=== PATIENT | female | born 1980 | race Caucasian/White ===

== ENCOUNTER 2017-08-18 15:43 | Emergency (ER) | payer SELFPAY ==
[~2017-08-18] VITALS: Ht 162.6 cm; Wt 105.0 kg
[2017-08-18 15:45] VITALS: BP 149/82
[2017-08-18 17:29] LABS: HEMATOCRIT 37.8 % (37.0-47.0); HEMOGLOBIN 12.9 g/dl (12.0-16.0); IMMATURE GRANULOCYTES 0.4 % (0.0-1.0); MEAN CELL VOLUME 79.7 fL CALC (80.0-100.0); MEAN CORPUSCULAR HGB 27.2 pG CALC (26.0-32.0); MEAN CORPUSCULAR HGB CONC 34.1 g/L CALC (32.0-36.0); NEUT# 7.38 thou/uL (2.00-7.15); RED BLOOD COUNT 4.74 mill/uL (4.20-5.60); RED CELL DISTRI WIDTH 13.4 % (11.5-15.5)
[2017-08-18 17:44] LABS: ALBUMIN 4.4 g/dL (3.2-5.0); ALKALINE PHOSPHATASE 84 u/l (38-126); ANION GAP 16 (6-22 (CALC)); BILIRUBIN, TOTAL 0.3 mg/dL (0.0-1.4); BUN 10 mg/dL (7-17); BUN/CREATININE RATIO 12 (12-20 (CALC)); CALCIUM 10.3 mg/dL (8.4-10.2); CARBON DIOXIDE 29 mmol/l (22-30); CHLORIDE 99 mmol/l (95-108); CREATININE 0.8 mg/dL (0.5-1.0); GFR > 60 ML/MIN (>=60 (CALC)); GFR FOR AFR.AMER. > 60 ML/MIN (>=60 (CALC)); GLUCOSE 175 mg/dL (65-105); POTASSIUM 3.5 mmol/l (3.5-5.1); SGOT/AST 16 u/l (14-36); SGPT/ALT 22 u/l (9-52); SODIUM 140 mmol/l (137-146)
[2017-08-18] MEDS ORDERED: ULTRAM50 MG PO (17:58)
[2017-08-18 18:43] LABS: URINE BILIRUBIN - DIPSTICK NEGATIVE (NEGATIVE); URINE BLOOD DIPSTICK NEGATIVE (NEGATIVE); URINE COLOR YELLOW; URINE GLUCOSE - DIPSTICK >=1000 mg/dL (NEGATIVE); URINE KETONE NEGATIVE (NEGATIVE); URINE LEUK ESTERASE NEGATIVE (NEGATIVE); URINE NITRITE - DIPSTICK NEGATIVE (Negative); URINE PH 5.5 (4.5-8.0); URINE PROTEIN - DIPSTICK NEGATIVE (NEG-TRACE); URINE UROBILINOGEN - DIPSTICK 0.2 E.U./dL (0.2)
[2017-08-18 18:57] LABS: URINE CLARITY CLEAR
== END 2017-08-18 21:40 | disposition home or self-care (01) | DRG 923 ==
LOC: ED 15:43
PROVIDERS: Emergency Medicine
DX: T74.21XA Adult sexual abuse, confirmed, initial encounter (principal); D80.2 Selective deficiency of immunoglobulin A [IgA]; K50.90 Crohn's disease, unspecified, without complications; I10 Essential (primary) hypertension; E11.9 Type 2 diabetes mellitus without complications; J45.909 Unspecified asthma, uncomplicated; F32.9 Major depressive disorder, single episode, unspecified; F41.9 Anxiety disorder, unspecified; F17.210 Nicotine dependence, cigarettes, uncomplicated; Y07.59 Other non-family member, perpetrator of maltreatment and neglect